=== PATIENT | male | born 1955 | race Caucasian/White ===

== ENCOUNTER 2021-01-27 16:44 | Inpatient (IN) | payer OTHER ==
[~2021-01-27] VITALS: Ht 170.2 cm; Wt 74.7 kg
--- NOTE | ~2021-01-27 | CON ---
[address] [address] CONSULTATION Name: VETO ANTOINE Room: [address] IN M.R.#: [id number] Admission: 01/27/21 Attend Phys: Radha Haas Discharge: Date of : 55 Report #: [id number] THIS REPORT FOR: cc: Erlinda Moraes Maggie M. DO Khosla, Parveen K. MD ~ DOC #: [id number] Pablo Tello MD DATE OF CONSULTATION: 01/28/2021 HISTORY OF PRESENT ILLNESS: This is a 65-year-old male patient who was evaluated by me for stroke. This patient started having some numbness and loss of final coordination on the left upper extremity and the left side of the face felt numb as if he is coming out of a dentist. His symptoms have mostly resolved. He never had these kind of symptoms before. He had an MRI done which demonstrated a small stroke on the right side. Subsequently, in the emergency room, he also underwent a CT angiogram, which demonstrated a 50-60% calcified plaque on the left side and some stenosis of the right M1 segment. He used to smoke and drink alcohol until about 4 years ago, but he has stopped doing that. He does not know when he checked his cholesterol and he is not on any antithrombotic therapy. REVIEW OF SYSTEMS: Indicate he had a stroke. He works in a maintenance. He had some eye symptoms also with it, which has resolved. Presently, he is not having any eye, ENT, cardiac, respiratory, GI, , musculoskeletal, constitutional, dermatological, hematological, psychiatric, throat, allergic symptom associated with present symptomatology. PAST MEDICAL HISTORY: Negative for TIA or stroke. FAMILY HISTORY: Negative for any early age stroke. SOCIAL HISTORY: He used to smoke and drink alcohol heavily, but he stopped doing that 4 years ago. PHYSICAL EXAMINATION: GENERAL: The patient's examination Indicate he is alert, responsive, able to follow simple and complex commands. His speech, concentration, fund of knowledge and memory is at his baseline. Cranial nerve examination II-XII is unremarkable. His strength, sensation, reflexes and tone are unremarkable on both sides. His position sense and touch is normal. His fbxgjw-fu-kmzw and yccp-zh-ddfl are unremarkable. There is no carotid bruit. CARDIORESPIRATORY: Unremarkable. No respiratory difficulty was noticed. No rhonchi was noticed. HEENT: There is no thyroid mass. There is no carotid [place] [address] CONSULTATION Name: VETO ANTOINE Room: [address] IN [facility]#: [id number] Admission: 01/27/21 Attend Phys: Radha Haas Discharge: Date of : 55 Report #: [id number] edema, cyanosis or jaundice. His hearing and vision looks adequate. VITAL SIGNS: His blood pressure is 136/80, respirations 16, pulse is 80 and temperature is 97.5. LABORATORY DATA: His platelet count is trace high at 429. CT angio and MRI was reviewed and is summarized as above. IMPRESSION: 1. Small cerebrovascular accident on the right side, which correlate with the patient's left-sided symptoms involving the face. This is probably because of stenosis of the right MCA for which no intervention can be done. 2. Asymptomatic left carotid stenosis, which need to be monitored as an outpatient. 3. Severe dyslipidemia and he needs to work on that as well as his other vascular risk factors, which I discussed with him. RECOMMENDATIONS: 1. Combination of aspirin and Plavix for 3-4 weeks and subsequently he can be just on aspirin. Presently, we can leave him on 81 mg of aspirin and 75 mg of Plavix after giving loading dose, but subsequently when Plavix is taken off in about 3-4 weeks, he should take a full dose of 325 mg of aspirin. 2. He needs intensive therapy for his dyslipidemia. I discussed the patient with Dr. Gee and I discussed the patient with the nurse and discussed the options with the patient in detail. His echo is done. He needs 30 days of event monitor as an outpatient to look for any source of atrial fibrillation and he may need even longer implantable monitor depending upon the results of that. He should follow up with us in about 2 weeks. Otherwise, we will sign off. Thank you very much for this referral and if you have any questions, please feel free to contact me. He should follow up with the vascular surgeon as an outpatient to monitor his carotid that can be arranged from here or that can be arranged by his primary care as an outpatient. MD FIDEL Peterson/ERIC By: [id number] Tello MD /stefan
[~2021-01-27 16:44] MED LIST: AUGMENTIN 875875 M1 PO; NOHOMEMEDICATIONS
[2021-01-27 16:49] VITALS: BP 170/75
[2021-01-27] MEDS ORDERED: MULTIVITAMIN (16:53)
[2021-01-27] MEDS ORDERED: VITAMIN D-40010 MCG (16:53)
[2021-01-27 17:28] LABS: ABSOLUTE BASOPHILS 0.1 thou/uL (0.0-0.2); ABSOLUTE EOSINOPHILS 0.4 thou/uL (0.0-0.7); ABSOLUTE LYMPHOCYTES 4.2 thou/uL (0.8-5.3); ABSOLUTE MONOCYTES 0.6 thou/uL (0.0-1.2); ABSOLUTE NEUTROPHILS 3.5 thou/uL (1.6-8.1); BASOPHILS 0.9 %; HEMATOCRIT 39.9 % (42.0-52.0); HEMOGLOBIN 13.5 gm/dL (14.0-18.0); LYMPHOCYTES 47.6 %; MCH 30.7 pg (26.0-34.0); MCHC 33.9 g/dL (28.0-37.0); MCV 90.3 fL (80.0-100.0); MONOCYTES 6.5 %; MPV 6.7 fl. (7.2-11.1); NUCLEATED RBCS 0 /100WBC; PLATELET COUNT* 429 thou/uL (150-400); RBC 4.42 mil/uL (4.50-6.00); RDW-CV 14.2 % (10.5-14.5); WBC 8.8 thou/uL (4.0-11.0)
[2021-01-27 17:46] LABS: CALCIUM 8.8 mg/dL (8.5-10.1); CREATININE 0.9 mg/dL (0.6-1.3); POTASSIUM 3.3 mmol/L (3.5-5.1); TOTAL BILIRUBIN 0.2 mg/dL (<0.1-1.0); TOTAL PROTEIN 7.1 g/dL (6.4-8.2)
[2021-01-27 21:18] VITALS: BP 152/80
[2021-01-28 01:37] LABS: ALBUMIN 3.9 g/dL (3.4-5.0); ALKALINE PHOSPHATASE 66 U/L (46-116); ANION GAP 8 mmol/L (7-16); BUN 7 mg/dL (7-18); CALCIUM 8.6 mg/dL (8.5-10.1); CHLORIDE 104 mmol/L (98-107); CHOLESTEROL 232 mg/dL (<200); CO2 28 mmol/L (21-32); CREATININE 0.8 mg/dL (0.6-1.3); GLUCOSE 90 mg/dL (70-99); HDL CHOLESTEROL 34 mg/dL (>40); LDL CHOLESTEROL 161 mg/dL (<100); SGOT 15 U/L (15-37); SGPT 17 U/L (30-65); SODIUM 140 mmol/L (136-145); TC:HDL 6.8 Ratio (Not establshd); TOTAL BILIRUBIN 0.4 mg/dL (<0.1-1.0); TOTAL PROTEIN 7.1 g/dL (6.4-8.2); TRIGLYCERIDE 185 mg/dL (<150); VLDL 37 mg/dL (<40)
[2021-01-28 01:38] LABS: SERUM ASSESSMENT Clear
[2021-01-28 05:57] VITALS: BP 140/75
[2021-01-28 09:30] VITALS: BP 148/84
[2021-01-28 10:32] LABS: ALBUMIN 4.1 g/dL (3.4-5.0); CALCIUM 9.1 mg/dL (8.5-10.1); CREATININE 0.8 mg/dL (0.6-1.3); POTASSIUM 3.7 mmol/L (3.5-5.1); TOTAL BILIRUBIN 0.5 mg/dL (<0.1-1.0); TOTAL PROTEIN 7.4 g/dL (6.4-8.2)
[2021-01-28 12:00] VITALS: BP 136/80
--- NOTE | 2021-01-28 12:02 | EKG ---
[place] [address] ELECTROCARDIOGRAM REPORT Name: VETO ANTOINE Room: [address] ADM IN M.R.#: [id number] Admission: 01/27/21 Attend Phys: Jan Cannon Discharge: Date of : 55 Date of Service: 01/27/21 1721 Report #: [id number] THIS REPORT FOR: //name// [facility] ED Test Date: 2021-01-27 Test Time: 17:21:01 Pat Name: VETO ANTOINE Department: Room: [facility] Gender: M Deputy Head: SANTHOSH : 1955 Requested By: Ricardo Pizarro Order Number: [id number] MD: Selvin Louis Measurements Intervals Winston Rate: 80 P: 4 TX: 143 QRS: 6 QRSD: 115 T: 70 QT: 387 QTc: 447 Interpretive Statements Sinus rhythm Nonspecific intraventricular conduction delay Minimal ST depression, lateral leads Baseline wander in lead(s) V5 No previous ECG available for comparison Electronically Signed On 01-28-2021 12:02:38 CDT by Selvin Louis [email or web address] <ELECTRONICALLY SIGNED> By: Selvin Louis MD, [facility] 01/28/21 1202 1721 1721 Selvin Louis MD, [facility] /EPI
--- NOTE | 2021-01-28 13:43 | 2DMMODE ---
[place] [address] 2 D/M-MODE ECHOCARDIOGRAM Name: ELINAVETO M Room: [address] ADM IN ..#: [id number] Admission: 01/27/21 Attend Phys: Jan Cannon Discharge: Date of : 55 Date of Service: 01/28/21 1343 Report #: [id number] THIS REPORT FOR: cc: Erlinda Moraes Maggie M. DO Liston, Michael J. MD [facility] ~ APPROVED REPORT Study performed: 01/28/2021 11:03:03 EXAM: Comprehensive 2D, Doppler, and color-flow Echocardiogram Patient Location: In-Patient Room #: 229 Status: routine BSA: 1.85 HR: 72 bpm BP: 124/72 mmHg Rhythm: NSR Other Information Study Quality: Good Indications CVA/TIA Echo Enhancing Agent Indication: Rule out Shunt Agent(s) / Amount(s) Used: Agitated Saline 10 cc 2D Dimensions IVSd: 11.82 (7-11mm) LVOT Diam: 22.07 (18-24mm) LVDd: 48.22 mm PWd: 10.22 (7-11mm) Ascending Ao: 35.25 (22-36mm) LVDs: 29.60 (25-40mm) Aortic Root: 37.10 mm Volumes Left Atrial Volume (Systole) LA ESV Index: 23.10 mL/m2 Aortic Valve AoV Peak Guanaco.: 1.24 m/s AO Peak Gr.: 6.19 mmHg LVOT Max P.82 mmHg AO Mean Gr.: 2.70 mmHg LVOT Mean P.80 [place] [address] 2 D/M-MODE ECHOCARDIOGRAM Name: VETO ANTOINE Room: [address] IN ..#: [id number] Admission: 01/27/21 Attend Phys: Jan Cannon Discharge: Date of : 55 Date of Service: 01/28/21 1343 Report #: [id number] LVOT Max V: 0.98 m/s AO V2 VTI: 21.26 cm LVOT Mean V: 0.61 m/s LIZZY (VTI): 3.53 cm2 LVOT V1 VTI: 19.63 cm Mitral Valve E/A Ratio: 0.84 MV Decel. Time: 221.52 ms MV E Max Guanaco.: 0.60 m/s MV PHT: 64.24 ms MVA (PHT): 3.42 cm2 TDI E/Lateral E': 6.00 E/Medial E': 6.00 Medial E' Guanaco.: 0.10 m/s Lateral E' Guanaco.: 0.10 m/s Pulmonary Valve PV Peak Guanaco.: 0.75 m/s PV Peak Gr.: 2.22 mmHg Left Ventricle The left ventricle is normal size. There is normal LV segmental wall motion. There is normal left ventricular wall thickness. Left ventricular systolic function is normal. LVEF is 60-65%. Transmitral Doppler flow pattern suggests impaired LV relaxation. Right Ventricle The right ventricle is normal size. The right ventricular systolic function is normal. Atria The left atrium size is normal. The interatrial septum is intact with no evidence for an atrial septal defect. The right atrium size is normal. Aortic Valve The aortic valve is normal in structure. Mild aortic regurgitation. There is no aortic valvular stenosis. Mitral Valve The mitral valve is normal in structure. Trace mitral regurgitation. No evidence of mitral valve stenosis. Tricuspid Valve The tricuspid valve is normal in structure. Unable to assess PA pressure. Trace [place]icus[place] [address] 2 D/M-MODE ECHOCARDIOGRAM Name: VETO ANTOINE Verenice Room: [address] IN [facility]#: [id number] Admission: 01/27/21 Attend Phys: Jan Cannon Discharge: Date of : 55 Date of Service: 01/28/21 1343 Report #: [id number] Pulmonic Valve The pulmonary valve is normal in structure. Trace pulmonic regurgitation. Great Vessels The aortic root is normal in size. IVC is normal in size and collapses >50% with inspiration. Pericardium There is no pericardial effusion. <Conclusion> The left ventricle is normal size. There is normal left ventricular wall thickness. Left ventricular systolic function is normal. LVEF is 60-65%. Transmitral Doppler flow pattern suggests impaired LV relaxation. There is normal LV segmental wall motion. The interatrial septum is intact with no evidence for an atrial septal defect. Mild aortic regurgitation. Trace mitral regurgitation. Trace tricuspid regurgitation. Trace pulmonic regurgitation. IVC is normal in size and collapses >50% with inspiration. <ELECTRONICALLY SIGNED> By: Homero Romo MD, FACC 01/28/21 1343 1343 1343 Homero Romo MD, FACC /INF
[2021-01-28 16:00] VITALS: BP 134/68
[2021-01-28 20:34] VITALS: BP 141/86
[2021-01-29] VITALS: BP 131/72
[2021-01-29 02:06] LABS: GLYCOHEMOGLOBIN (HGB A1C) 5.4 % (4.8-5.6)
[2021-01-29 04:00] VITALS: BP 126/84
[2021-01-29 08:00] VITALS: BP 111/74; BP 144/89
[2021-01-29] MEDS ORDERED: ADULT LOW DOSE81 MG PO (10:50)
[2021-01-29] MEDS ORDERED: CLOPIDOGREL75 MG PO (10:50)
[2021-01-29] MEDS ORDERED: LIPITOR 40 MG T40 M1 PO (10:50)
[2021-01-29] MEDS ORDERED: LISINOPRIL2.5 MG PO (10:55)
[2021-01-29 12:40] VITALS: BP 111/74
[2021-01-29 13:37] VITALS: BP 111/74
== END 2021-01-29 14:03 | disposition home or self-care (01) | DRG 65 ==
LOC: M.2W 17:34 → M.TBA-ER 17:34 → M.2W 01-28 09:33
PROVIDERS: Emergency Medicine Emergency Medical Services; Family Medicine; Internal Medicine; ADMIT Internal Medicine; ATTEND Internal Medicine
DX: I63.89 Other cerebral infarction (principal); G81.94 Hemiplegia, unspecified affecting left nondominant side; I50.32 Chronic diastolic (congestive) heart failure; I65.22 Occlusion and stenosis of left carotid artery; E78.5 Hyperlipidemia, unspecified; E87.6 Hypokalemia; Z20.822 Contact with and (suspected) exposure to COVID-19; Z79.899 Other long term (current) drug therapy; Z87.891 Personal history of nicotine dependence

== ENCOUNTER → 2021-02-11 | Outpatient (CLI) | payer OTHER ==
[~2021-02-11] MED LIST changes: +ADULT LOW DOSE81 MG PO; +CLOPIDOGREL75 MG PO; +LIPITOR 40 MG T40 M1 PO; +LISINOPRIL2.5 MG PO; +MULTIVITAMIN; +VITAMIN D-40010 MCG
== END ==
LOC: M.ULTRA 09:29
PROVIDERS: ATTEND Family Medicine
DX: I65.22 Occlusion and stenosis of left carotid artery (principal); I63.9 Cerebral infarction, unspecified

== ENCOUNTER 2021-05-14 20:03 | Emergency (ER) | payer OTHER ==
[~2021-05-14] VITALS: Ht 180.3 cm; Wt 72.6 kg
[2021-05-14] MEDS ORDERED: CEPHALEXIN500 MG PO (21:17)
[2021-05-14] MEDS ORDERED: APAP W/CODEINE1 TA2 PO (21:17)
[2021-05-14 22:10] VITALS: BP 112/70
== END 2021-05-14 22:11 | disposition home or self-care (01) ==
LOC: M.ERS 20:03
DX: S62.631B Displaced fracture of distal phalanx of left index finger, initial encounter for open fracture (principal); Z79.899 Other long term (current) drug therapy; Z79.82 Long term (current) use of aspirin; W31.2XXA Contact with powered woodworking and forming machines, initial encounter; Y93.89 Activity, other specified; Y92.89 Other specified places as the place of occurrence of the external cause; Y99.9 Unspecified external cause status